=== PATIENT | male | born 1945 | race Caucasian/White ===

== ENCOUNTER 2018-07-20 11:25 | Inpatient (IN) | payer MEDICARE ==
--- NOTE | 2018-07-20 12:59 | RAD ---
EXAM: 3 views of the left hand COMPARISON: None HISTORY: Left hand swelling with possible insect bite FINDINGS: 3 views of the left hand shows no evidence of acute fracture or dislocation. Degenerative c hanges are seen in the interphalangeal joints and in the index finger metacarpal phalangeal joint. Severe dorsal soft tissue swelling is present. No osseous erosions are seen. IMPRESSION: Degenerative changes of the left hand without acute osseous abnormality.
[2018-07-20 13:35] LABS: #Eosinphils 0.3 thou/uL (0.0-0.7); #Lymphocytes 1.6 thou/uL (1.20-3.40); #Monocytes 0.9 thou/uL (0.11-0.59); #Neutrophils 5.9 thou/uL (1.40-6.50); %Basophils 0.4 % (0.0-1.0); %Eosinophils 3.4 % (0.0-10.0); %Lymphocytes 18.2 % (21.0-51.0); %Monocytes 10.6 % (0.0-10.0); %Neutrophils 67.5 % (42.0-75.0); Hemoglobin 13.7 g/dL (14.0-18.0); Mean Corpuscular HGB CONC 32.3 g/dL (32.0-36.0); Mean Corpuscular Hemoglobin 31.7 pg (27.0-31.0); Mean Corpuscular Volume 97.9 fL (78.0-98.0); Mean Platelet Volume 6.8 fL (7.4-10.4); Platelet Count 253 thou/uL (130-400); RBC Distribution Width 12.4 % (11.5-14.5); Red Blood Cell (RBC) Count 4.32 mill/uL (4.70-6.10); White Blood Cell (WBC) Count 8.8 thou/uL (4.8-10.8)
[2018-07-20 14:05] LABS: ALT (SGPT) Less than 7 U/L (8-55); AST (SGOT) 12 U/L (5-34); Albumin 4.1 g/dL (3.4-4.8); Alkaline Phosphatase 88 U/L (40-150); Anion Gap 14 mmol/L (10-20); BUN (Urea Nitrogen) 25 mg/dL (8.4-25.7); Bilirubin, Total 0.5 mg/dL (0.2-1.2); CRP (Inflammatory) 2.61 mg/dL (= or < 0.5); Calc. Creatinine Clearance 0 mL/min (70-130); Calcium 9.3 mg/dL (7.8-10.44); Carbon Dioxide 23 mmol/L (23-31); Chloride 105 mmol/L (98-107); Estimated GFR-MDRD 43; Globulin 2.1 g/dL (2.4-3.5); Glucose 98 mg/dL (83-110); Potassium 4.5 mmol/L (3.5-5.1); Protein, Total 6.2 g/dL (5.8-8.1); Sodium 137 mmol/L (136-145)
[2018-07-20] MEDS ORDERED: Piperacillin/Tazobactam 3.375 GM VIAL ONE (15:13)
--- NOTE | 2018-07-20 16:11 | ULT ---
VENOUS DOPPLER ULTRASOUND OF THE LEFT UPPER EXTREMITY: Date: 07/20/18 HISTORY: Swelling of the left upper extremity. TECHNIQUE: Ortiz scale ultrasound with color flow and spectral Doppler imaging of the deep venous system of the l eft upper extremity performed. FINDINGS: There is good flow without intraluminal thrombus and normal compression and spectral waveforms in the left internal jugular, subclavian, axillary, brachial, radial, ulnar, basilic, and cephalic veins. IMPRESSION: No evidence of deep venous thrombosis in the left upper extremity. POS: OFF
--- NOTE | 2018-07-20 16:13 | RAD ---
PORTABLE CHEST 1 VIEW: Date: 07/20/18 Time: 1517 hours HISTORY: Injury, dizziness. FINDINGS: The heart size is normal. The aorta is tortuous. The lungs are expanded without focal areas of consol idation, pneumothoraces, or pleural effusions. There is evidence of old granulomatous disease. There is an old fracture of the right clavicle. IMPRESSION: No acute process. POS: OFF
[2018-07-20] MEDS ORDERED: Clindamycin/D5W 600 mg/50 ml Premix Bag ONE (17:04)
[2018-07-20] MEDS ORDERED: Acetaminophen 325 MG TAB PO PRN (18:41)
[2018-07-20] MEDS ORDERED: Guaifenesin DM 100-10/5 ML UDCUP PO PRN (18:41)
[2018-07-20] MEDS ORDERED: Bisacodyl 10 MG SUPP PR PRN (18:41)
[2018-07-20] MEDS ORDERED: Senokot S 8.6-50 MG TAB PO PRN (18:41)
--- NOTE | 2018-07-20 19:12 | HP ---
REASON FOR ADMISSION: Left upper extremity cellulitis, which is severe; left chest wall large ecchymosis, possible rib fracture, likely secondary to fall. HISTORY OF PRESENTING ILLNESS: Please note majority of this history is obtained by talking to the patient's sister, Ms. Alka Sanchez, as the patient is a very poor historian and has underlying dementia. He does not communicate much. The patient just gives a blank staring look when asked about any question. Per sister, the patient apparently was normal yesterday morning, but this morning she saw his left upper extremity to be swollen. He had redness and had some blue discoloration on his palm as well. She also noticed a big large red area over the left chest wall. She asked him if he was bitten by anything, but the patient could not say. [place]. The swelling in the left upper extremity has been progressively worsening up until they arrived here in the emergency room. He does not have any pets at home. He does not have any farm animals on his land. PAST MEDICAL AND SURGICAL HISTORY: Dementia from last three years and appendectomy when he was 15 years old. CURRENT MEDICATIONS: The patient is on, 1. Aspirin 81 mg p.o. daily. 2. Donepezil 10 mg at bedtime. ALLERGIES: NO KNOWN DRUG ALLERGIES. PERSONAL HISTORY: He does not abuse alcohol or drugs. No history of smoking. FAMILY HISTORY: Mother at the age of 87 from natural causes. Father at the age of 73 years; he has had history of chronic kidney disease, coronary artery disease with prior RI, prostate cancer and had amputation of lower extremities as well. The patient himself has three children who are 50, 44 and 42 years old; two of them live in [place] and one in [place]. Per sister, they are not very much involved in his care. CODE STATUS: Full. Power of environmental attorney is his sister, Ms. Alka Sanchez. REVIEW OF SYSTEMS: Cannot be obtained as the patient is not oriented. PHYSICAL EXAMINATION: GENERAL: The patient is a 73-year-old male who is currently not in any acute distress. VITAL SIGNS: Blood pressure 150/76, pulse 50 per minute, respiratory rate 16 per minute, temperature 98 degrees Fahrenheit, and saturating 99% on room air. NECK: Supple. No elevated JVD. HEENT: Eyes; extraocular muscles intact. Pupils reacting to light. Oral cavity, mucous membranes are dry. No exudates or congestion. CARDIOVASCULAR SYSTEM: S1 and S2 are heard. Regular rhythm. RESPIRATORY SYSTEM: Air entry 1+ bilateral. No rales or rhonchi. There is a large area of ecchymosis in the infra-axillary area on the left chest wall. No obvious flail chest seen. ABDOMEN: Soft. Bowel sounds heard. No tenderness, rigidity, or guarding. EXTREMITIES: Left upper extremity is grossly swollen, edematous and has areas of erythema, which are worse in the flexural areas of the wrist and elbow. He also has cyanotic patchy areas in the palm of his hand. The patient is able to move his fingers a bit. Lower extremities, no peripheral edema or calf tenderness. VASCULAR SYSTEM: Peripheral pulses 1+ bilaterally. No ischemic ulcerations or gangrene. CENTRAL NERVOUS SYSTEM: No gross focal deficits noted. The patient is alert and awake, but not oriented. PSYCHIATRIC SYSTEM: No obvious hallucinations or delusions. LABORATORY DATA: Left hand three-view x-ray done shows degenerative changes in the left hand without acute osseous abnormality. Severe dorsal soft tissue swelling is present. No osseous erosions are seen. No acute fracture or dislocation. Left upper extremity venous Doppler done shows no evidence of DVT. Chest x-ray done shows no acute process. White count of 8, H and H 13 and 42, platelet count 253 with 67% neutrophils, and MCV is 97. Electrolytes are stable. BUN 25 and creatinine 1.5. Liver enzymes are within normal limits. CRP 2.61. Albumin is 4.2. CLINICAL IMPRESSION AND PLAN: The patient will be admitted to medical floor for severe left upper extremity cellulitis and mild acute kidney injury. It is unclear if he had any animal bite including spider or snake as the patient is not oriented and is a very poor historian. We will obtain PT, INR, PTT, and fibrinogen levels as well. He will be on cefepime, clindamycin, and vancomycin. Gentle hydration with normal saline for a total of 2 L and Motrin 400 mg p.o. three times daily. We will obtain consultation with Dr. Bruce as there is no hand surgeon flight control manager today and Dr. Urbano for Infectious Disease as well. I have discussed code status with the patient's sister who is also his power of environmental attorney, Ms. Alka Sanchez, and he is a full code. Job ID: [id number] [facility]
[2018-07-20] MEDS ORDERED: diphenhydrAMINE 50 MG/ML VIAL IVP SCH (19:30)
[2018-07-20] MEDS ORDERED: diphenhydrAMINE 50 MG/ML VIAL ONE (19:32)
[2018-07-20 20:02] VITALS: BMI 25.1
[2018-07-20] MEDS: Ibuprofen 200 MG TAB PO SCH (20:07)
[2018-07-20] MEDS: Sodium Chloride 0.9% 1,000 ML IV SCH (20:10)
[2018-07-20] MEDS: Cefepime 1 GM in Sodium Chloride 0.9% 100 ML IVPB SCH (20:10)
[2018-07-20] MEDS ORDERED: Sterile Water 10 ML VIAL FS PRN (21:06)
[2018-07-20] MEDS ORDERED: Ziprasidone 20 MG VIAL IM SCH (21:15)
[2018-07-20] MEDS ORDERED: Ziprasidone 20 MG CAP PO SCH (21:15)
[2018-07-20] MEDS: Famotidine 20 MG TAB PO SCH (21:26)
[2018-07-20] MEDS: Clindamycin/D5W 600 MG in Premix Bag 1 BAG IVPB SCH (23:44)
[2018-07-21] MEDS: Ibuprofen 200 MG TAB PO SCH ×4 (08:00→19:21)
[2018-07-21] MEDS: Cefepime 1 GM in Sodium Chloride 0.9% 100 ML IVPB SCH (08:01)
[2018-07-21] MEDS: Enoxaparin Sodium 40 MG/0.4 ML SYRINGE SC SCH (08:57)
[2018-07-21] MEDS ORDERED: Prevnar 13-Val Conj/PF 0.5 ML SYRINGE IM ONE (09:00)
[2018-07-21] MEDS: Clindamycin/D5W 600 MG in Premix Bag 1 BAG IVPB SCH (09:07)
[2018-07-21] MEDS: Sodium Chloride 0.9% 1,000 ML IV SCH (09:19)
[2018-07-21] MEDS ORDERED: Vancomycin HCl 1.5 GM in Sodium Chloride 0.9% 250 ML 300 ML IVPB SCH (10:00)
[2018-07-21 10:03] LABS: #Eosinphils 0.4 thou/uL (0.0-0.7); #Lymphocytes 1.1 thou/uL (1.20-3.40); #Monocytes 0.6 thou/uL (0.11-0.59); #Neutrophils 4.4 thou/uL (1.40-6.50); %Basophils 0.4 % (0.0-1.0); %Eosinophils 5.5 % (0.0-10.0); %Lymphocytes 17.4 % (21.0-51.0); %Monocytes 8.7 % (0.0-10.0); %Neutrophils 68.1 % (42.0-75.0); Mean Corpuscular HGB CONC 32.3 g/dL (32.0-36.0); Mean Corpuscular Hemoglobin 31.4 pg (27.0-31.0); Mean Corpuscular Volume 97.3 fL (78.0-98.0); Mean Platelet Volume 6.8 fL (7.4-10.4); Platelet Count 219 thou/uL (130-400); RBC Distribution Width 12.5 % (11.5-14.5); Red Blood Cell (RBC) Count 4.45 mill/uL (4.70-6.10); White Blood Cell (WBC) Count 6.5 thou/uL (4.8-10.8)
[2018-07-21 10:13] LABS: Platelet Count 219 thou/uL (130-400)
[2018-07-21 10:17] LABS: INR-International Normal Ratio 1.1; Prothrombin Time 14.3 SEC (12.0-14.7)
[2018-07-21 10:18] LABS: PTT 31.5 SEC (22.9-36.1)
[2018-07-21 10:20] LABS: D-Dimer Test 2.14 *mcg/mL (0.27-0.43)
[2018-07-21 10:28] LABS: ALT (SGPT) Less than 7 U/L (8-55); AST (SGOT) 11 U/L (5-34); Albumin 3.9 g/dL (3.4-4.8); Alkaline Phosphatase 82 U/L (40-150); Anion Gap 13 mmol/L (10-20); BUN (Urea Nitrogen) 24 mg/dL (8.4-25.7); Bilirubin, Total 0.6 mg/dL (0.2-1.2); Calc. Creatinine Clearance 52 mL/min (70-130); Calcium 9.5 mg/dL (7.8-10.44); Carbon Dioxide 22 mmol/L (23-31); Chloride 108 mmol/L (98-107); Estimated GFR-MDRD 49; Globulin 2.6 g/dL (2.4-3.5); Glucose 92 mg/dL (83-110); Potassium 4.1 mmol/L (3.5-5.1); Protein, Total 6.5 g/dL (5.8-8.1); Sodium 139 mmol/L (136-145)
[2018-07-21 10:59] LABS: Fibrinogen 452 mg/dL (253-463)
--- NOTE | 2018-07-21 12:14 | RAD ---
Exam: 3 views of left RIBS: HISTORY: Pain. Injury. FINDINGS: No fracture. No cortical irregularity or periosteal action. IMPRESSION: No fracture.
--- NOTE | 2018-07-21 12:15 | RAD ---
Exam: Right ribs 3 views HISTORY: Pain. Injury. FINDINGS: Chronic fracture the mid right clavicle. No acute right rib fracture. IMPRESSION: No evidence of an acute right rib fracture.
[2018-07-21 13:01] LABS: FSP-Qualitative ABNORMAL (Normal); FSP-Semiquantitative >=5 & <20 mcg/mL (Less than 5)
[2018-07-21] MEDS ORDERED: Ziprasidone 20 MG CAP PO PRN (13:41)
--- NOTE | 2018-07-21 13:44 | PDOC.PN ---
- Subjective Encounter Start Date: 07/21/18 Encounter Start Time: 08:45 Subjective: not oriented but calm, sister at bedside -: was agitated last night and trying to get out of bed/walk out/pull iv -: after geodon last night he was calm and slept through per staff - Objective Resuscitation Status - Order Detail: 07/20/18 18:34 Resuscitation Status Routine Resuscitation Status: FULL: Full Resuscitation Discussed with: POA: Mrs.Susie Sanchez sister BHARATH Reviewed: Yes Vital Signs & Weight: Vital Signs (12 hours) Temp Pulse Resp BP BP Pulse Ox 07/21/18 12:00 97.3 F L 50 L 20 143/84 H 99 07/21/18 08:00 97.7 F 46 L 20 138/68 98 Weight Weight 175 lb Result Diagrams: 07/21/18 09:58 07/21/18 09:58 Phys Exam - Physical Examination HEENT: PERRLA, sclera anicteric Neck: no JVD, supple Respiratory: no wheezing, no rales Cardiovascular: RRR, no significant murmur Gastrointestinal: soft, non-tender, positive bowel sounds Musculoskeletal: pulses present is able to move his left hand fingers left UE edema still present but slightly better than yesterday Neurological: non-focal, moves all 4 limbs Dx/Plan (1) Cellulitis of left upper extremity Code(s): L03.114 - CELLULITIS OF LEFT UPPER LIMB Status: Acute (2) Dementia Code(s): F03.90 - UNSPECIFIED DEMENTIA WITHOUT BEHAVIORAL DISTURBANCE Status: Chronic Qualifiers: Dementia type: unspecified type Dementia behavioral disturbance: with behavioral disturbance Qualified Code(s): F03.91 - Unspecified dementia with behavioral disturbance (3) AMOR (acute kidney injury) Code(s): N17.9 - ACUTE KIDNEY FAILURE, UNSPECIFIED Status: Resolved - Plan encourage po intake, may ambulate in hallway with sister -: is on cefepime, clinda and vanc, prelim blood cs are -ve -: has extensive cellulitis with edema, not sure if he has involvement of musc -: MRI if ok with /Sundeep -: [facility] prn. Gave full updates to sister at bedside * . fibrinogen levels are normal. Review of Systems - Medications/Allergies Allergies/Adverse Reactions: Allergies Allergy/AdvReac Type Severity Reaction Status Date / Time No Known Allergies Allergy Unverified 07/20/18 19:55 Medications: Current Medications Acetaminophen (Tylenol) 650 mg PO Q4H PRN PRN Reason: Headache/Fever/Mild Pain (1-3) Bisacodyl (Dulcolax) 10 mg MS DAILYPRN PRN PRN Reason: Constipation Enoxaparin Sodium (Lovenox) 40 mg SC 0900 PENDING SALE TO [facility] Last Admin: 07/21/18 08:57 Dose: Not Given Famotidine (Pepcid) 20 mg PO QPM PENDING SALE TO [facility] Last Admin: 07/20/18 21:26 Dose: Not Given Guaifenesin/Dextromethorphan (Robitussin Dm) 15 ml PO Q4H PRN PRN Reason: Cough Cefepime HCl 1 gm/ Sodium (Chloride) 100 mls @ 200 mls/hr IVPB 0800,2000 PENDING SALE TO [facility] Last Admin: 07/21/18 08:01 Dose: 100 mls Clindamycin Phosphate/Dextrose (600 mg/ Device) 50 mls @ 100 mls/hr IVPB 0100, 0900,1700 PENDING SALE TO [facility] Last Admin: 07/21/18 09:07 Dose: 50 mls Vancomycin HCl 1.5 gm/ Sodium (Chloride) 300 mls @ 200 mls/hr IVPB Q24HR PENDING SALE TO [facility] Last Admin: 07/21/18 10:05 Dose: 300 mls Ibuprofen (Motrin) 400 mg PO TID PENDING SALE TO [facility] Last Admin: 07/21/18 10:08 Dose: Not Given Miscellaneous Medication (Pharmacy To Dose) 1 each IVPB PRN PRN PRN Reason: Pharmacy to dose Senna/Docusate Sodium (Senokot S) 2 tab PO BID PRN PRN Reason: Constipation Sodium Chloride (Flush - Normal Saline) 10 ml IVF Q12HR PENDING SALE TO [facility] Last Admin: 07/21/18 08:01 Dose: 10 ml Sodium Chloride (Flush - Normal Saline) 10 ml IVF PRN PRN PRN Reason: Saline Flush Ziprasidone (Geodon) 20 mg PO HS PRN PRN Reason: Agitation
--- NOTE | 2018-07-21 14:14 | CON ---
DATE OF CONSULTATION: BRIEF HISTORY OF PRESENT ILLNESS: Mr. Velazquez is a 73-year-old right-hand dominant gentleman with severe dementia. Today, he was examined in his hospital bed with his sister at bedside. The patient presented to the hospital yesterday for evaluation of a contusion to his left chest wall as well as some swelling, redness and some ecchymoses at the palm of his left nondominant hand. The patient does not recall taking a recent fall, but again has severe dementia and really cannot recall anything in his recent past. The patient was admitted with a presumptive diagnosis of cellulitis. He does not recall whether he was bitten by anything and again, cannot provide any significant history. Orthopedic consultation was requested due to this swelling within this left arm to make sure that there was no worry for compartment syndrome. PAST MEDICAL HISTORY: Remarkable for dementia. PAST SURGICAL HISTORY: Appendectomy. MEDICATIONS: 1. Aspirin. 2. Donepezil. ALLERGIES: NONE KNOWN. FAMILY HISTORY: Noncontributory for upper extremity cellulitis. REVIEW OF SYSTEMS: The patient does not report recent fevers, chills, or sweats. Denies chest pain or shortness of breath. He denies numbness or tingling in the hand. PHYSICAL EXAMINATION: VITAL SIGNS: Temperature of 97.3, heart rate of 50, respiratory rate of 20, and blood pressure 143/84. HEENT: Atraumatic and normocephalic. RESPIRATORY: Remarkable for unlabored breathing. EXTREMITIES: Remarkable for a left upper extremity with swelling that extends from the upper arm down into the hand. There was found to be edema in the dorsal aspect of the hand as well as some ecchymoses at the base of the index, ring, and long fingers of this left hand. The palmar surface of the hand is even more remarkable for bruising over the thenar eminence and to some degree hypothenar eminence. He does have wrinkled skin dorsally and by report, the swelling has significantly lessened over the last 12 hours. He is able to flex his fingertips to within 2 cm of his palm and is able to actively extend the digits. The deep palmar space, thenar space, and hypothenar spaces are soft. His forearm has some mild soft tissue swelling, but no tenseness within the compartments of the forearm. He does not have pain with passive stretch. LABORATORY DATA: White count of 8, hematocrit of 42, and platelets 253,000. 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 ASSESSMENT: At this time, the patient has swelling with ecchymoses of the left upper extremity. We cannot really obtain a history as to how this started. However, I do not think we can rule out trauma given the bruising that is present. In any event, it does appear the patient is responding very nicely to current care with swelling significantly less in this arm as viewed by his sister who did see him yesterday as well. Given the patient does not have any pain with passive stretch, is not running fevers, has a normal white count, I think current care is producing a very nice recovery. At this time, we will sign off, as there is no surgical lesion within this arm and I do not feel that this is at risk for developing a compartment syndrome. Should he developed fevers or elevated white count or develop a pointing abscess, I would ask for re-consultation of the Orthopedic Service. Job ID: [id number]
[2018-07-21] MEDS: Famotidine 20 MG TAB PO SCH (19:22)
--- NOTE | 2018-07-21 23:52 | CON ---
DATE OF CONSULTATION: 07/21/2018 REASON FOR CONSULTATION: Possible inflammatory process in the left upper extremity. HISTORY OF PRESENT ILLNESS: A 73-year-old, history of dementia which is quite significant, who lives at home with sister and was found to have a swollen left upper extremity with areas of bruising. She brought him in and he has been started on antimicrobials, had some imaging studies that are reviewed below. The patient is unable to provide any history. His cognition is markedly decreased. He has no recollection of anything and he cannot even provide review of systems. He has had no diarrhea. No evidence of respiratory symptoms. No documented fever. No reported fall, although there is some suspicion that he fell, but it cannot be documented. PAST MEDICAL HISTORY: Includes severe dementia and prior appendectomy. ALLERGIES: NONE. MEDICATIONS: 1. Aspirin. 2. Donepezil. SOCIAL HISTORY: Never smoker. FAMILY HISTORY: Noncontributory. CURRENT MEDICATIONS: 1. Tylenol. 2. Cefepime. 3. Clindamycin. 4. Pepcid. 5. Vancomycin. PHYSICAL EXAMINATION: VITAL SIGNS: He has been afebrile. Blood pressure 140/84, pulse is 50, respirations 20, and O2 saturation 99%. SKIN: Areas of bruising in the left lateral chest wall next to the axilla and bruising on the hands as well, both dorsal and palmar aspects. Those areas have quite a bit of tenderness, particularly close to the wrist area. He has tenderness in the ribcage region, left side close to the axilla. HEENT: No lymphadenopathy. Ocular movements conjugate. Oral cavity is not remarkable. NECK: Supple. LUNGS: Symmetric. Clear breath sounds. HEART: S1 and S2. Regular rate. No S3 or S4. ABDOMEN: Soft, not distended, or tender. No ascites. No bladder distention. No genital abnormalities. MUSCULOSKELETAL: No joint inflammatory process outside the area of involvement. Pulses are 1+ in dorsalis pedis. Moves all extremities with limitations imposed by the left upper extremity changes. NEUROLOGIC: He is awake, recognize his name, but he could not tell me where he was. He could not answer any questions reliably. He has no recall whatsoever. LABORATORY DATA: White cell count 8.8 and 6.5, hemoglobin 13.7, platelets 253 with slight lymphocytopenia. INR 1.1. Sodium 137, creatinine 1.58 and 1.43. Liver profile normal. CRP 2.6. Albumin 4.1. DIAGNOSTIC DATA: We had a left hand x-ray, which showed no acute fracture, dislocation, degenerative changes seen, severe dorsal soft tissue swelling, but no erosions noted. He has had a vascular ultrasound with venous Doppler in the left upper extremity, which showed good flow without intraluminal thrombus. Normal compression and spectral waveforms left internal jugular, subclavian, axillary, brachial, radial, ulnar, basilic, and cephalic veins. He had ribcage films done with no abnormality noted. He did have a fracture in the mid right clavicle noted, but the left ribcage films did not show anything of significance. There is a chest x-ray without acute process. ASSESSMENT: Severe dementia with presumed episode of fall with contusion to chest wall and left hand. He has areas of bruising noted. The venous ultrasound did not show any evidence of clot in the left upper vein system. I do not think the clinical findings are suggestive of an infection and they are more consistent with trauma. The age of this trauma is unknown, but it seems to be recent. Recommend discontinuation of antimicrobial therapy. May need to repeat a venous study because sometimes early on the venous duplex ultrasound may be normal in cases of acute thrombosis. The other possibility is to image the area with an MRI, but I think I would just observe it. Job ID: [id number] [facility]
[2018-07-22] MEDS: Enoxaparin Sodium 40 MG/0.4 ML SYRINGE SC SCH (07:40)
[2018-07-22] MEDS: Ibuprofen 200 MG TAB PO SCH (07:41)
--- NOTE | 2018-07-22 12:18 | PDOC.PN ---
- Subjective Encounter Start Date: 07/22/18 Encounter Start Time: 12:17 Subjective: admitted due to left upper limb swelling/redness concerning for cellulitis. -: Patient with severe dementia could not provide any history. - Objective Resuscitation Status - Order Detail: 07/20/18 18:34 Resuscitation Status Routine Resuscitation Status: FULL: Full Resuscitation Discussed with: POA: Mrs.Susie Sanchez sister Vital Signs & Weight: Vital Signs (12 hours) Temp Pulse Resp BP Pulse Ox 07/22/18 07:02 98.6 F 51 L 18 135/68 99 Weight Weight 175 lb I&O: 07/21/18 07/22/18 07/23/18 06:59 06:59 06:59 Intake Total 1003 Balance 1003 Result Diagrams: 07/21/18 09:58 07/21/18 09:58 Phys Exam - Physical Examination Constitutional: NAD afebrile, anicteric. HEENT: PERRLA, moist MMs Neck: no JVD, supple Respiratory: no wheezing, no rales, no rhonchi, clear to auscultation bilateral Cardiovascular: RRR, no significant murmur Gastrointestinal: soft, non-tender, no distention, positive bowel sounds Musculoskeletal: pulses present Left upper limb edema with resolving ecchymosis of the hand dorsum. Left lateral chest bruise/ecchymosis noted. Neurological: moves all 4 limbs awake and verbalizing though confused. obeying comands. Dx/Plan (1) Severe dementia Code(s): F03.90 - UNSPECIFIED DEMENTIA WITHOUT BEHAVIORAL DISTURBANCE Status: Acute (2) Left upper extremity swelling Code(s): M79.89 - OTHER SPECIFIED SOFT TISSUE DISORDERS Status: Acute (3) Traumatic ecchymosis of left upper arm Code(s): S40.022A - CONTUSION OF LEFT UPPER ARM, INITIAL ENCOUNTER Status: Acute (4) AMOR (acute kidney injury) Code(s): N17.9 - ACUTE KIDNEY FAILURE, UNSPECIFIED Status: Resolved - Plan Cellulitis unlikely without leucocytosis/fever. most likely truama -: Off antibiotics. -: DC Motrin due to CKD+/- AMOR -: Repeat renal function and CBC -: For discharge if still improving and without fever/leucocytosis tomorrow * .
[2018-07-22 13:59] LABS: #Eosinphils 0.4 thou/uL (0.0-0.7); #Lymphocytes 1.3 thou/uL (1.20-3.40); #Monocytes 0.6 thou/uL (0.11-0.59); #Neutrophils 4.6 thou/uL (1.40-6.50); %Basophils 0.3 % (0.0-1.0); %Eosinophils 5.3 % (0.0-10.0); %Lymphocytes 18.4 % (21.0-51.0); %Monocytes 9.1 % (0.0-10.0); %Neutrophils 66.9 % (42.0-75.0); Hemoglobin 13.1 g/dL (14.0-18.0); Mean Corpuscular HGB CONC 33.3 g/dL (32.0-36.0); Mean Corpuscular Hemoglobin 31.8 pg (27.0-31.0); Mean Corpuscular Volume 95.7 fL (78.0-98.0); Mean Platelet Volume 6.6 fL (7.4-10.4); Platelet Count 245 thou/uL (130-400); Red Blood Cell (RBC) Count 4.12 mill/uL (4.70-6.10); White Blood Cell (WBC) Count 6.9 thou/uL (4.8-10.8)
[2018-07-22 14:20] LABS: Anion Gap 14 mmol/L (10-20); BUN (Urea Nitrogen) 26 mg/dL (8.4-25.7); Calc. Creatinine Clearance 57 mL/min (70-130); Calcium 9.3 mg/dL (7.8-10.44); Carbon Dioxide 23 mmol/L (23-31); Chloride 109 mmol/L (98-107); Estimated GFR-MDRD 54; Glucose 81 mg/dL (83-110); Potassium 3.8 mmol/L (3.5-5.1); Sodium 142 mmol/L (136-145)
[2018-07-22] MEDS: Famotidine 20 MG TAB PO SCH (19:49)
[2018-07-23 07:35] LABS: #Eosinphils 0.3 thou/uL (0.0-0.7); #Lymphocytes 1.1 thou/uL (1.20-3.40); #Monocytes 0.6 thou/uL (0.11-0.59); #Neutrophils 3.4 thou/uL (1.40-6.50); %Basophils 0.6 % (0.0-1.0); %Eosinophils 6.2 % (0.0-10.0); %Lymphocytes 20.5 % (21.0-51.0); %Monocytes 10.4 % (0.0-10.0); %Neutrophils 62.3 % (42.0-75.0); Hemoglobin 11.8 g/dL (14.0-18.0); Mean Corpuscular HGB CONC 33.2 g/dL (32.0-36.0); Mean Corpuscular Hemoglobin 31.2 pg (27.0-31.0); Mean Platelet Volume 6.8 fL (7.4-10.4); Platelet Count 203 thou/uL (130-400); RBC Distribution Width 11.9 % (11.5-14.5); Red Blood Cell (RBC) Count 3.78 mill/uL (4.70-6.10); White Blood Cell (WBC) Count 5.5 thou/uL (4.8-10.8)
[2018-07-23 07:48] LABS: Anion Gap 10 mmol/L (10-20); BUN (Urea Nitrogen) 20 mg/dL (8.4-25.7); Calc. Creatinine Clearance 69 mL/min (70-130); Calcium 9.1 mg/dL (7.8-10.44); Carbon Dioxide 24 mmol/L (23-31); Chloride 108 mmol/L (98-107); Estimated GFR-MDRD 67; Glucose 90 mg/dL (83-110); Potassium 3.8 mmol/L (3.5-5.1); Sodium 138 mmol/L (136-145)
[2018-07-23] MEDS: Enoxaparin Sodium 40 MG/0.4 ML SYRINGE SC SCH (08:08)
--- NOTE | 2018-07-23 12:40 | DIS ---
DATE OF ADMISSION: 07/20/2018 DATE OF DISCHARGE: 07/23/2018 PRIMARY CARE PHYSICIAN: Dr. Vu Beltrán. DISCHARGE DIAGNOSES: 1. Presumed acute trauma to left upper extremity and left lateral chest wall. 2. Left upper extremity swelling. 3. Traumatic ecchymosis of left upper arm. 4. Acute kidney injury. 5. Severe dementia. CONSULTS: 1. Infectious Disease. 2. Orthopedic Surgery. HOSPITAL COURSE: The patient is a 73-year-old male with known history of severe dementia, who was brought in by family due to acute onset of left-sided swelling and pain. The patient was unable to provide any history due to severe dementia. There was some concern about cellulitis and the patient was started on broad-spectrum antibiotics. The swelling was also very much concerning for compartment syndrome, hence Orthopedic Surgery consult was obtained and he was felt that there were no features of compartment syndrome. The patient also was noted to have acute kidney injury with creatinine of 1.58 on presentation. The patient also was noted to have some bruises on the left lateral aspect of upper chest, which was concerning for rib fracture, but imaging of the ribs was negative for fracture. There was also concern for DVT, but Doppler of the left upper extremity was negative. Infectious Disease consult was obtained and he was felt that this is most likely trauma hence antibiotics were discontinued. The patient was observed off antibiotics and there was no fever or leukocytosis and the swelling was improving with limb elevation. The patient remained stable and renal function improved with creatinine down to 1.04 and the patient was discharged home to follow with PCP. PHYSICAL EXAMINATION: VITAL SIGNS: Temperature 98.8, pulse 59, respiratory rate 19, SpO2 of 100% on room air, blood pressure 142/82. GENERAL: Healthy-looking male, in no obvious distress. Afebrile. Anicteric. Acyanotic. HEENT: Normocephalic, atraumatic. Pupils are equal and reacting to light. Oral mucosa is moist. CARDIOVASCULAR: Regular rhythm and rate with normal heart sounds 1 and 2. RESPIRATORY: Good air entry bilaterally with no obvious crackle or rhonchi or use of accessory muscles. CHEST/MUSCULOSKELETAL: Left lateral chest wall resolving ecchymosis. Mild tenderness noted. Left upper extremity global swelling with resolving ecchymosis involving the proximal aspect of the digits noted. No obvious skin breakdown or erythema was appreciated. Distal pulses are palpable. Other extremities are grossly unremarkable and atraumatic. NEUROLOGIC: Conscious and alert. The patient is oriented to person at least. Ambulant. Marked memory lapses noted. DISCHARGE CONDITION: Improving. FOLLOWUP: With PCP in 3 to 5 days. DISCHARGE MEDICATIONS: 1. Aspirin 81 mg p.o. daily. 2. Donepezil 10 mg p.o. daily. 3. Tylenol 650 mg q.4 p.r.n. for pain. TIME SPENT: This discharge took more than 36 minutes. Job ID: [id number]
[2018-07-23 12:42] VITALS: TEMP 97.7
[2018-07-23 12:47] VITALS: BP 163/82
== END 2018-07-23 12:50 | disposition home or self-care (01) | DRG 603 ==
LOC: ERS 11:25 → T4-A 16:30
PROVIDERS: ADMIT Internal Medicine; ATTEND Internal Medicine
DX: L03.114 Cellulitis of left upper limb (principal); N17.9 Acute kidney failure, unspecified; F03.90 Unspecified dementia, unspecified severity, without behavioral disturbance, psychotic disturbance, mood disturbance, and anxiety; S40.022A Contusion of left upper arm, initial encounter; X58.XXXA Exposure to other specified factors, initial encounter; Z90.49 Acquired absence of other specified parts of digestive tract; Z79.82 Long term (current) use of aspirin
CPT/HCPCS: 36415; 71045; 80048; 80053; 83605; 85025; 85049; 85300; 85362; 85379; 85384; 85610; 85652; 85730; 86140; 87040; 96365; 96367; J0692; J1200; J1650; J2543; J3370; J3490; J7050